=== PATIENT | female | born 1965 | race Caucasian/White ===

== ENCOUNTER 2017-08-14 05:51 | Emergency (ER) | payer OTHER ==
[~2017-08-14] VITALS: Ht 167.6 cm; Wt 72.6 kg
== END 2017-08-14 07:07 | disposition left against medical advice (07) ==
LOC: ER 05:51
DX: F32.9 Major depressive disorder, single episode, unspecified (principal); F31.9 Bipolar disorder, unspecified; G89.29 Other chronic pain
CPT/HCPCS: 99281